=== PATIENT | male | born 1995 | race Hispanic/Latino ===

== ENCOUNTER 2019-11-29 21:48 | Inpatient (IN) | payer OTHER, SELFPAY ==
[2019-11-29 23:54] VITALS: BMI 35.2
[2019-11-30] MEDS ORDERED: Acetaminophen 325 MG TAB PO PRN ×2 (00:36→09:50)
[2019-11-30] MEDS ORDERED: Ondansetron ODT 4 MG TAB SL PRN (00:36)
[2019-11-30] MEDS ORDERED: Ondansetron PF 4 MG/2 ML Vial IVP PRN ×3 (00:36→09:48)
[2019-11-30] MEDS ORDERED: Ketorolac Tromethamine 30 MG/ML VIAL IVP PRN (00:37)
[2019-11-30] MEDS ORDERED: Morphine 2 MG/ML VIAL SLOW IVP PRN (00:39)
[2019-11-30] MEDS: D5 1/2 NS w/20 mEq KCL 1,000 ML IV SCH ×4 (00:55→17:17)
[2019-11-30] MEDS: Morphine 4 MG/ML VIAL SLOW IVP PRN ×4 (00:55→19:39)
[2019-11-30] MEDS: Piperacillin/Tazobactam 3.375 GM in Sodium Chloride 0.9% 100 ML IVPB SCH ×5 (03:09→22:28)
[2019-11-30] MEDS ORDERED: metroNIDAZOLE 500 MG in Premix Bag 1 BAG IVPB SCH (04:00)
[2019-11-30] MEDS ORDERED: Pantoprazole 40 MG VIAL IVP SCH (10:00)
[2019-11-30] MEDS: Morphine 2 MG/ML VIAL SLOW IVP PRN ×2 (14:32→22:28)
--- NOTE | 2019-11-30 15:49 | HP ---
CHIEF COMPLAINT: Abdominal pain. HISTORY OF PRESENT ILLNESS: Mr. Hansen is a 24-year-old man who presented to the [place] [facility] with abdominal pain last night. He had been having pain for 3 to 4 days as well as fevers and chills and some nausea and vomiting. He felt like he had the urge to have a bowel movement, but was unable to. He did have a small bowel movement on the day of admission, which relieved his pain slightly, but then the pain came back, so he came to the emergency room. A CT scan there revealed evidence of diverticulitis with thickening of the sigmoid colon and a small fluid collection adjacent containing fluid and air only about 2 cm in size. He did have some evidence of partial colonic obstruction with distention of the colon proximal to the inflamed segment of bowel. He was transferred to [place] for further care. When I saw him this morning, the patient was not having any nausea and his abdominal pain was improved with pain medicine and antibiotics. He states that he has had one previous episode of diverticulitis a couple of years ago, but not this severe. He was not admitted to the hospital for that episode. No family history of GI malignancy. 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 He is unsure what kind of tumor it was. Since the resection, he continues to have intermittent seizures, but this is fairly well controlled on medication. He has not followed up with his neurosurgeons since his resection 2 years ago and has not had any followup imaging for this. He is still taking his antiseizure medications since moving to [place] from [place], but has not established care with a primary care provider to obtain refills. PAST SURGICAL HISTORY: Brain tumor resection at [facility] 2 years ago. FAMILY HISTORY: Diabetes. SOCIAL HISTORY: The patient smokes about half a pack a day. He used to smoke marijuana, but has not used that in the past year. No other drugs. Very rare alcohol use. 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 REVIEW OF SYSTEMS: Ten system review of systems is negative except per HPI. PHYSICAL EXAMINATION: VITAL SIGNS: The patient is afebrile, heart rate in the 70s, respirations 18, 100% saturated on room air, blood pressure 130/82. GENERAL: Reveals a healthy-appearing young man, in no acute distress. HEENT: Unremarkable. NECK: Supple without lymphadenopathy or thyroid nodules. HEART: Regular in its rate and rhythm without murmurs, rubs, or gallops. LUNGS: Clear to auscultation bilaterally. ABDOMEN: Soft and slightly distended and tympanitic. He is tender to palpation more in the left abdomen than the right. He does not exhibit rigidity, rebound, or guarding. EXTREMITIES: Warm and well perfused without edema. NEUROLOGIC: No focal deficits. PSYCHIATRIC: Alert, oriented, and appropriate. LABORATORY DATA: White count is elevated at 17,000. Electrolytes are unremarkable. IMAGING: CT images are reviewed and I agree with the written report. ASSESSMENT: Complicated diverticulitis with small pericolonic abscess and partial obstruction at the level of the inflamed bowel. His obstructive symptoms have improved since being admitted and placed on IV antibiotics. I will keep him n.p.o. for now until he has return of more normal bowel function. I will order an abdominal film for tomorrow to make sure that the colonic distention is improving, who was encouraged to ambulate frequently. The abscess is too small to percutaneously drain and will likely respond to antibiotics alone, so really the obstructive symptoms are the more concerning part of his presentation and more likely to result in need for surgery and hopefully as the inflammation goes down, the obstruction will resolve as well. I am going to continue his oral antiseizure medication and IV antibiotics as well as ulcer prophylaxis and deep venous thrombosis prophylaxis. No need anticipated for urgent surgery in the next 24 to 48 hours. Job ID: [id number]
[2019-11-30] MEDS: Topiramate 100 MG TAB PO SCH (20:56)
[2019-12-01] MEDS: Ketorolac Tromethamine 30 MG/ML VIAL IVP PRN ×3 (00:15→20:16)
[2019-12-01] MEDS: D5 1/2 NS w/20 mEq KCL 1,000 ML IV SCH ×3 (00:18→17:09)
[2019-12-01] MEDS: Morphine 4 MG/ML VIAL SLOW IVP PRN (02:26)
[2019-12-01] MEDS: Piperacillin/Tazobactam 3.375 GM in Sodium Chloride 0.9% 100 ML IVPB SCH ×4 (05:08→23:14)
[2019-12-01 05:20] LABS: #Basophils 0.1 thou/uL (0.0-0.2); #Eosinphils 0.2 thou/uL (0.0-0.7); #Lymphocytes 2.5 thou/uL (1.20-3.40); #Monocytes 0.6 thou/uL (0.11-0.59); #Neutrophils 6.8 thou/uL (1.40-6.50); %Basophils 0.6 % (0.0-1.0); %Eosinophils 2.4 % (0.0-10.0); %Lymphocytes 24.4 % (21.0-51.0); %Monocytes 6.3 % (0.0-10.0); %Neutrophils 66.3 % (42.0-75.0); Hemoglobin 13.9 g/dL (14.0-18.0); Mean Corpuscular HGB CONC 32.3 g/dL (32.0-36.0); Mean Corpuscular Hemoglobin 28.8 pg (27.0-31.0); Mean Corpuscular Volume 89.3 fL (78.0-98.0); Mean Platelet Volume 7.7 fL (7.4-10.4); Platelet Count 322 thou/uL (130-400); RBC Distribution Width 11.5 % (11.5-14.5); Red Blood Cell (RBC) Count 4.82 mill/uL (4.70-6.10); White Blood Cell (WBC) Count 10.2 thou/uL (4.8-10.8)
[2019-12-01 05:40] LABS: Anion Gap 9 mmol/L (10-20); BUN (Urea Nitrogen) 8 mg/dL (8.9-20.6); Calc. Creatinine Clearance 160 mL/min (70-130); Calcium 8.8 mg/dL (7.8-10.44); Carbon Dioxide 27 mmol/L (22-29); Chloride 102 mmol/L (98-107); Estimated GFR-MDRD 86; Glucose 97 mg/dL (70-105); Potassium 4.4 mmol/L (3.5-5.1); Sodium 134 mmol/L (136-145)
[2019-12-01] MEDS: Enoxaparin Sodium 40 MG/0.4 ML SYRINGE SC SCH (08:54)
[2019-12-01] MEDS: Pantoprazole 40 MG VIAL IVP SCH (08:55)
[2019-12-01] MEDS: Acetaminophen 325 MG TAB PO PRN (11:31)
--- NOTE | 2019-12-01 12:39 | RAD ---
EXAM: XR Abdomen 2 View DATE: 12/01/2019 11:13 AM INDICATION: History of diverticulitis COMPARISON: CT the abdomen and pelvis with contrast dated November 29, 2019 FINDING: Prominent gas and fluid-filled loops of colon within the upper abdomen and left upper quadr ant persists. A few mildly prominent gas-filled loops of small bowel are seen within the central abdomen. There is prominent amount retained stool seen within the right hemicolon. Lung bases are rich ar. No pneumoperitoneum is demonstrated. IMPRESSION:Persistent dilated loops of colon within the upper abdomen left upper quadrant is suspicio us for partial colonic obstruction. There is prominent amount of retained stool within the right hemicolon. Mild interval gaseous distention of loops of small bowel within the central abdomen.
[2019-12-01 12:56] LABS: SARS-CoV-2 MS2 Positive; SARS-CoV-2 N Gene Negative; SARS-CoV-2 S Gene Negative; SARS-CoV-2 orf1ab Negative
--- NOTE | 2019-12-01 18:04 | PDOC.GSPN ---
Surgery Progress Note: Subj - Subjective Narrative: Patient states that his abdominal pain is stable. A little nausea but no vomiting. He is passing gas but has not had a bowel movement. He is tolerating ice chips. He is afebrile with normal vital signs. His white count has diminished on antibiotics. His abdomen is precipitation equipment tender but less than yesterday. He is still tympanitic. Plain film of the abdomen shows continued colonic gaseous distention with mild small bowel dilation. Assessment/plan: Complicated diverticulitis with partial colonic obstruction and small abscess. Responding slowly to antibiotics. I have started a stool softener but left him n.p.o. except for ice chips. I encouraged him to ambulate frequently. Hopefully as the inflammation goes down with the antibiotics his colon will open back up. Otherwise he will need surgery. Continue to monitor response to antibiotics. Surgery Progress Note: Obj - Vital signs Vital signs: Vital Signs - Most Recent Temp Pulse Resp BP Pulse Ox 98.1 F 63 12 120/77 100 12/01/19 14:50 12/01/19 14:50 12/01/19 14:50 12/01/19 14:50 12/01/19 14:50 Surgery Progress Note: Results - Labs Result Diagrams: 12/01/19 04:53 12/01/19 04:53 Lab results: Laboratory Results - last 24 hr 12/01/19 00:35 COVID-19 PCR Not Detected
[2019-12-01] MEDS: Docusate 100 MG CAP PO SCH (20:12)
[2019-12-01] MEDS: Topiramate 100 MG TAB PO SCH (20:12)
[2019-12-01] MEDS: Morphine 2 MG/ML VIAL SLOW IVP PRN (20:15)
[2019-12-02] MEDS: D5 1/2 NS w/20 mEq KCL 1,000 ML IV SCH ×4 (00:37→20:18)
[2019-12-02] MEDS: Piperacillin/Tazobactam 3.375 GM in Sodium Chloride 0.9% 100 ML IVPB SCH ×4 (04:16→23:14)
[2019-12-02 05:45] LABS: #Eosinphils 0.2 thou/uL (0.0-0.7); #Lymphocytes 2.1 thou/uL (1.20-3.40); #Monocytes 0.6 thou/uL (0.11-0.59); #Neutrophils 4.4 thou/uL (1.40-6.50); %Basophils 0.5 % (0.0-1.0); %Eosinophils 3.3 % (0.0-10.0); %Lymphocytes 28.5 % (21.0-51.0); %Monocytes 7.9 % (0.0-10.0); %Neutrophils 59.9 % (42.0-75.0); Hemoglobin 13.4 g/dL (14.0-18.0); Mean Corpuscular HGB CONC 31.7 g/dL (32.0-36.0); Mean Corpuscular Volume 88.5 fL (78.0-98.0); Mean Platelet Volume 7.7 fL (7.4-10.4); Platelet Count 320 thou/uL (130-400); RBC Distribution Width 11.3 % (11.5-14.5); Red Blood Cell (RBC) Count 4.78 mill/uL (4.70-6.10); White Blood Cell (WBC) Count 7.4 thou/uL (4.8-10.8)
[2019-12-02 06:13] LABS: BUN (Urea Nitrogen) 8 mg/dL (8.9-20.6); Calc. Creatinine Clearance 163 mL/min (70-130); Calcium 8.7 mg/dL (7.8-10.44); Carbon Dioxide 23 mmol/L (22-29); Estimated GFR-MDRD 88; Glucose 84 mg/dL (70-105)
[2019-12-02 06:22] LABS: Anion Gap 12 mmol/L (10-20); Chloride 105 mmol/L (98-107); Potassium 3.9 mmol/L (3.5-5.1); Sodium 135 mmol/L (136-145)
--- NOTE | 2019-12-02 09:49 | PDOC.GSPN ---
Surgery Progress Note: Subj - Subjective Narrative: Feels better. Abdominal pain less and not nauseated. Passing gas, no BM yet. Abd soft min TTP, less dist and not tympanitic. WBC nl, no left shift. AF w nl VS. A/P) Diverticulitis, improving. Clears. Rpt labs, abd xray in AM. Surgery Progress Note: Obj - Vital signs Vital signs: Vital Signs - Most Recent Temp Pulse Resp BP Pulse Ox 97.9 F 60 12 99/63 99 12/02/19 07:54 12/02/19 07:54 12/02/19 07:54 12/02/19 07:54 12/02/19 07:54 Surgery Progress Note: Results - Labs Result Diagrams: 12/02/19 05:24 12/02/19 05:24 Lab results: Laboratory Results - last 24 hr 12/02/19 12/02/19 05:24 05:24 WBC 7.4 RBC 4.78 Hgb 13.4 L Hct 42.3 MCV 88.5 MCH 28.0 MCHC 31.7 L RDW 11.3 L Plt Count 320 MPV 7.7 Neutrophils % 59.9 Lymphocytes % 28.5 Monocytes % 7.9 Eosinophils % 3.3 Basophils % 0.5 Neutrophils # 4.4 Lymphocytes # 2.1 Monocytes # 0.6 H Eosinophils # 0.2 Basophils # 0.0 Sodium 135 L Potassium 3.9 Chloride 105 Carbon Dioxide 23 Anion Gap 12 BUN 8 L Creatinine 1.03 Estimated GFR (MDRD) 88 Glucose 84 Calcium 8.7
[2019-12-02] MEDS: Docusate 100 MG CAP PO SCH ×2 (09:58→20:18)
[2019-12-02] MEDS: Pantoprazole 40 MG VIAL IVP SCH (09:58)
[2019-12-02] MEDS: Enoxaparin Sodium 40 MG/0.4 ML SYRINGE SC SCH (09:59)
[2019-12-02] MEDS: Morphine 2 MG/ML VIAL SLOW IVP PRN (15:29)
[2019-12-02] MEDS: Topiramate 100 MG TAB PO SCH (20:18)
[2019-12-02] MEDS: Morphine 4 MG/ML VIAL SLOW IVP PRN ×2 (20:19→23:27)
[2019-12-03] MEDS: D5 1/2 NS w/20 mEq KCL 1,000 ML IV SCH ×3 (04:09→21:24)
[2019-12-03] MEDS: Piperacillin/Tazobactam 3.375 GM in Sodium Chloride 0.9% 100 ML IVPB SCH ×4 (04:10→23:09)
[2019-12-03] MEDS: Morphine 4 MG/ML VIAL SLOW IVP PRN (04:16)
[2019-12-03] MEDS: Enoxaparin Sodium 40 MG/0.4 ML SYRINGE SC SCH (08:09)
[2019-12-03] MEDS: Docusate 100 MG CAP PO SCH ×2 (08:09→21:29)
[2019-12-03] MEDS: Pantoprazole 40 MG VIAL IVP SCH (08:09)
--- NOTE | 2019-12-03 10:58 | PDOC.GSPN ---
Surgery Progress Note: Subj - Subjective Narrative: Patient is feeling a lot better today. His abdominal pain has nearly resolved and he is no longer nauseated. He is tolerating liquid diet and has passed gas and had a couple of loose bowel movements. He is afebrile with normal vital signs. Abdomen is soft nontender nondistended. I received his records from [facility] and reviewed these. He had a schwannoma which was partially resected but his last imaging reports from [facility] showed increase in size of the schwannoma and apparently neurosurgery was considering radiation therapy, although the patient did not receive this. He also had issues with noncompliance with his antiseizure medications and was admitted for seizures several times. He states that he is taking his seizure medications now, although he states he does not take them as prescribed. He is supposed to take them twice a day and only takes them at night because he feels like it makes him groggy if he takes them in the morning. He does not have a neurologist or even a primary care doctor here in [place] and has not seen a neurosurgeon either. Assessment/plan: Complicated diverticulitis responding to medical management. The partial colon obstruction appears to be resolving clinically. I have ordered repeat abdominal film and as long as the proximal colon is less distended I will advance his diet. If he tolerates this he may be ready for transition to oral antibiotics and discharge home tomorrow. I did stress to him that he needs to follow-up with neurosurgery and neurology for his seizure disorder and his schwannoma. We also discussed the possibility of elective sigmoid colectomy since he has had recurrent episodes of diverticulitis. He understands that if he comes in with active diverticulitis and requires urgent surgery he will likely have a colostomy. Surgery Progress Note: Obj - Vital signs Vital signs: Vital Signs - Most Recent Temp Pulse Resp BP Pulse Ox 97.8 F 53 L 12 100/63 99 12/03/19 08:00 12/03/19 08:00 12/03/19 08:00 12/03/19 08:00 12/03/19 08:00 Surgery Progress Note: Results - Labs Result Diagrams: 12/02/19 05:24 12/02/19 05:24
[2019-12-03] MEDS: Acetaminophen 325 MG TAB PO PRN ×2 (11:26→19:14)
--- NOTE | 2019-12-03 11:39 | RAD ---
ABDOMEN TWO VIEWS: HISTORY: Diverticulitis. COMPARISON: 12/01/2019 FINDINGS: The previously noted fairly extensive colonic distention, down to the level of the distal left colon, is no longer evident. No abnormal small bowel dilatation. No free intraperitoneal air. Biplane x-ray . IMPRESSION: Resolution of the previously noted colonic distention. No significant new process. POS: [facility]
[2019-12-03] MEDS ORDERED: diphenhydrAMINE 50 MG CAP PO PRN (21:22)
[2019-12-03] MEDS ORDERED: diphenhydrAMINE 25 MG CAP PO PRN (21:22)
[2019-12-03] MEDS: Topiramate 100 MG TAB PO SCH (21:24)
[2019-12-03] MEDS: Morphine 2 MG/ML VIAL SLOW IVP PRN (21:33)
[2019-12-04] MEDS: Piperacillin/Tazobactam 3.375 GM in Sodium Chloride 0.9% 100 ML IVPB SCH ×2 (04:04→11:02)
[2019-12-04] MEDS: D5 1/2 NS w/20 mEq KCL 1,000 ML IV SCH (09:10)
[2019-12-04] MEDS: Docusate 100 MG CAP PO SCH (09:10)
[2019-12-04] MEDS: Enoxaparin Sodium 40 MG/0.4 ML SYRINGE SC SCH (09:11)
[2019-12-04] MEDS: Pantoprazole 40 MG VIAL IVP SCH (09:11)
[2019-12-04 11:43] VITALS: BP 106/64; TEMP 98.1
[2019-12-04] MEDS ORDERED: metroNIDAZOLE 500 MG TAB PO SCH ×2 (11:45→15:00)
--- NOTE | 2019-12-04 11:59 | PDOC.GSPN ---
Surgery Progress Note: Subj - Subjective Narrative: Patient is feeling good. He denies any abdominal pain nausea vomiting or bloating. He is eating his GI soft diet without any problems and having soft bowel movements. Abdominal film yesterday showed resolution of the colonic distention. He is afebrile with normal vital signs and his abdominal exam is nontender nondistended. I am going to transition him to oral antibiotics today and if he tolerates these we will discharge him home on a 10-day course of treatment. He is to follow-up as an outpatient. We will schedule him for an outpatient colonoscopy in a couple months. He has had several bouts of diverticulitis and may benefit from interval sigmoid colectomy.. I am also referring him to neurosurgery and neurology as an outpatient. Surgery Progress Note: Obj - Vital signs Vital signs: Vital Signs - Most Recent Temp Pulse Resp BP Pulse Ox 98.1 F 61 14 106/64 99 12/04/19 11:43 12/04/19 11:43 12/04/19 11:43 12/04/19 11:43 12/04/19 11:43 Surgery Progress Note: Results - Labs Result Diagrams: 12/02/19 05:24 12/02/19 05:24
== END 2019-12-04 15:17 | disposition home or self-care (01) | DRG 389 ==
LOC: EDSTATUS 21:50 → SURG A 23:35
PROVIDERS: ADMIT Surgery; ATTEND Surgery
DX: K56.600 Partial intestinal obstruction, unspecified as to cause (principal); K57.80 Diverticulitis of intestine, part unspecified, with perforation and abscess without bleeding; G40.802 Other epilepsy, not intractable, without status epilepticus; F17.200 Nicotine dependence, unspecified, uncomplicated; Z20.828 Contact with and (suspected) exposure to other viral communicable diseases
CPT/HCPCS: 36415; 74019; 80048; 85025; 87635; C9113; J1650; J1885; J2270; J2405; J2543; J3480; J3490; Q0163; U0003